=== PATIENT | female | born 1950 | race Caucasian/White ===

== ENCOUNTER 2018-09-01 10:41 | Observation (INO) | payer MEDICARE ==
[2018-09-01 11:19] LABS: ABS Basophils 0.1 10^3/ul (0-0.2); ABS Eosinophils 0 10^3/ul (0-0.6); ABS Lymphocytes 0.8 10^3/ul (1.0-4.8); ABS Monocytes 0.8 10^3/ul (0-0.8); ABS Neutrophils 9.8 10^3/ul (1.5-7.7); ABS Nucleated RBC 0 10^3/ul; Eosinophil % 0.4 % (0-6); Hematocrit 43 % (35-47); Hemoglobin 14.3 g/dl (12.0-16.0); Lymphocyte % 7.1 % (25-47); Mean Corpuscular HGB Conc 34 g/dl (31-36); Mean Corpuscular Hemoglobin 31 pg (27-31); Mean Corpuscular Volume 92 fL (80-97); Mean Platelet Volume 8.4 um3 (7.4-10.4); Nucleated Red Blood Cells % 0.1; Platelet Count 254 10^3/ul (150-450); Red Blood Count 4.66 10^6/ul (4.00-5.40); Red Cell Distribution Width 13 % (10.5-15); White Blood Count 11.5 10^3/ul (3.5-10.8)
--- NOTE | 2018-09-01 11:29 | RAD ---
HISTORY: chest pain COMPARISONS: May 30, 2017 VIEWS: 1: frontal AP view of the chest at 11:15 AM FINDINGS: LINES AND TUBES: None. CARDIOMEDIASTINAL SILHOUETTE: The cardiomediastinal silhouette is normal for portable technique. PLEURA: The costophrenic angles are sharp. No pleural abnormalities are noted. LUNG PARENCHYMA: There is hyperinflation. ABDOMEN: The upper abdomen is clear. There is no subphrenic gas. BONES AND SOFT TISSUES: No bone or soft tissue abnormalities are noted. IMPRESSION: HYPERINFLATION. NO ACTIVE CARDIOPULMONARY DISEASE.
--- NOTE | 2018-09-01 11:50 | ED ---
HPI Chest Pain - HPI Summary HPI Summary: A 68 y/o F presents to ED with c/o intermittent episodes of CP ongoing for months, with the worse episode this AM. The CP is described as crushing and radiates directly to her back and L shoulder blade. Associated sx: SOB, lightheaded, weakness, malaise, VICTORIA, cold hands, mildly blurry vision. Denies v/d , dysuria, melena, pedal edema, rashes. She has had episodes of CP discomfort previously but not as severely as this AM, and it is not usually accompanied by SOB. Pert PMHx: CHF, DM, Uterine CA. Pt has never had a stress test before. She started a new medication recently. She states not going to work for the past few days due to not feeling at baseline. Pt given baby aspirin by EMS. - History of Current Complaint Chief Complaint: EDChestPainROMI Hx Obtained From: Patient, Family/Mill [employer]ender Onset/Duration: Started Hours Ago, Still Present Timing: Constant Initial Severity: Mild Current Severity: Moderate Pain Intensity: 2 Pain Scale Used: 0-10 Numeric Chest Pain Radiates: Yes Chest Pain Radiates To:: Back, Shoulder - L Character: Crushing Aggravating Factor(s): Exertion, Movement Alleviating Factor(s): Rest, EMS Tx Associated Signs and Symptoms: Positive: Shortness of Breath, Lightheadedness, Other: - pos: weakness, malaise, VICTORIA, cold hands. neg: diarrhea, dysuria, melena , pedal edema, rashes.. Negative: Vomiting - Allergy/Home Medications Allergies/Adverse Reactions: Allergies Allergy/AdvReac Type Severity Reaction Status Date / Time No Known Allergies Allergy Verified 12/27/13 14:58 Home Medications: Home Medications Alendronate TAB (NF) [Fosamax TAB (NF)] 70 mg PO DAILY 09/01/18 [History Confirmed 09/01/18] Folic Acid/Multivit-Min/Lutein [Multi-Vitamin Gummies] 1 chw PO DAILY 09/01/18 [ History Confirmed 09/01/18] Ibuprofen TAB* [Motrin TAB* 400 MG] 400 mg PO Q6H PRN 09/01/18 [History Confirmed 09/01/18] Insulin GLARGINE(*) [Lantus(*)] 40 ml SUBCUT DAILY 09/01/18 [History Confirmed 09/01/18] Insulin LISPRO* [HumaLOG*] 0 units SUBCUT AC 09/01/18 [History Confirmed ] Levothyroxine Sodium 88 mcg PO DAILY 09/01/18 [History Confirmed 09/01/18] PMH/Surg Hx/FS Hx/Imm Hx Previously Healthy: No Endocrine/Hematology History: Reports: Hx Diabetes Cardiovascular History: Reports: Hx Congestive Heart Failure, Hx Hypertension Opthamlomology History: Denies: Hx Legally Blind - Cancer History Hx Chemotherapy: No Hx Radiation Therapy: No Infectious Disease History: No Infectious Disease History: Denies: Traveled Outside the [place] in Last 30 Days - Family History Known Family History: Positive: Other - neg: family breast CA - Social History Occupation: Employed Full-time Lives: With Family Alcohol Use: Rare Substance Use Type: Reports: None Review of Systems Positive: Other - pos: malaise Positive: Blurred Vision - mildly Positive: Chest Pain Positive: Shortness Of Breath Positive: Other - neg: melena. Negative: Vomiting, Diarrhea Negative: dysuria, hematuria Positive: Other - pos: cold hands. Negative: Edema Negative: Rash Neurological: Other - pos: lightheadedness Positive: Headache, Weakness Positive: Depressed - mildly All Other Systems Reviewed And Are Negative: No Physical Exam - Summary Physical Exam Summary: Appearance: Alert, conversive, nontoxic appearing Skin: Warm, dry, no mottling, no rashes, no contusions HEENT: EOMI, PERRL, moist mucous membranes Neck: No masses on the neck, supple Respiratory: Clear to auscultation, breath sounds present, no rales, no rhonchi , no wheezes Cardiovascular: RRR, pulses are symmetrical in both lower and upper extremities Abdomen: Soft, non-tender Bowel Sounds: Present Musculoskeletal: No CVA tenderness, no obvious deformity, moving all extremities in a grossly normal manner Neurological: A&Ox3, CN II-XII Intact, moving all extremities symmetrically Psychiatric: Normal affect and mood Triage Information Reviewed: Yes Vital Signs On Initial Exam: Initial Vitals Temp Pulse Resp BP Pulse Ox 98.0 F 84 15 152/69 98 09/01/18 10:44 09/01/18 10:44 09/01/18 10:44 09/01/18 10:44 09/01/18 10:44 Vital Signs Reviewed: Yes Diagnostics - Vital Signs Vital Signs Temp Pulse Resp BP Pulse Ox 09/01/18 10:44 98.0 F 84 15 152/69 98 - Laboratory Lab Results: Lab Results 09/01/18 09/01/18 Range/Units 11:06 11:06 WBC 11.5 H (3.5-10.8) 10^3/ul RBC 4.66 (4.00-5.40) 10^6/ul Hgb 14.3 (12.0-16.0) g/dl Hct 43 (35-47) % MCV 92 (80-97) fL MCH 31 (27-31) pg MCHC 34 (31-36) g/dl RDW 13 (10.5-15) % Plt Count 254 (150-450) 10^3/ul MPV 8.4 (7.4-10.4) um3 Neut % (Auto) 85.4 H (38-83) % Lymph % (Auto) 7.1 L (25-47) % [place] % (Auto) 6.6 (0-7) % Eos % (Auto) 0.4 (0-6) % Baso % (Auto) 0.5 (0-2) % Absolute Neuts (auto) 9.8 H (1.5-7.7) 10^3/ul Absolute Lymphs (auto) 0.8 L (1.0-4.8) 10^3/ul Absolute Monos (auto) 0.8 (0-0.8) 10^3/ul Absolute Eos (auto) 0 (0-0.6) 10^3/ul Absolute Basos (auto) 0.1 (0-0.2) 10^3/ul Absolute Nucleated RBC 0 10^3/ul Nucleated RBC % 0.1 D-Dimer, Quantitative < 200 (Less Than 230) ng/mL Result Diagrams: 09/01/18 11:06 09/01/18 11:06 Lab Statement: Any lab studies that have been ordered have been reviewed, and results considered in the medical decision making process. - Radiology CXR Xray Interpretation: Positive (See Comments) - IMPRESSION: HYPERINFLATION. NO ACTIVE CARDIOPULMONARY DISEASE. ED provider has reviewed this report. Radiology Interpretation Completed By: Radiologist - EKG 1044 Cardiac Rate: NL - 82 bpm EKG Rhythm: Sinus Rhythm EKG Interpretation: nml axis, nml ST wave Chest Pain Course/Dx - Course Course Of Treatment: Pt is a 68 y/o F presenting with intermittent episodes of CP ongoing for months, with the worse episode this AM. The CP is described as crushing and radiates directly to her back and L shoulder blade. Associated sx: SOB, lightheaded, weakness, malaise, VICTORIA, cold hands, mildly blurry vision. Pt denies ever having a stress test. Physical exam is unremarkable. EKG is NSR. - Diagnoses Provider Diagnoses: Chest pain - Provider Notifications Discussed Care Of Patient With: Jen Morgan - hospitalist Time Discussed With Above Provider: 12:23 Instructed by Provider To: Admit As Inpatient Discharge - Sign-Out/Discharge Documenting (check all that apply): Patient Departure - ADMIT - Discharge Plan Condition: Stable Disposition: ADMITTED TO [facility] - Billing Disposition and Condition Condition: STABLE Disposition: Admitted to [facility] - Attestation Statements Document Initiated by Scribe: Yes Documenting Scribe: Dagoberto Shafer Provider For Whom Scribe is Documenting (Include Credential): Dr. Lala Clarke MD Scribe Attestation: Dagoberto Parnell scribed for Dr. Lala Clarke MD on 09/01/18 at 1948. Scribe Documentation Reviewed: Yes Provider Attestation: The documentation as recorded by the Dagoberto sanchez accurately reflects the service I personally performed and the decisions made by me, Dr. Lala Clarke MD
[2018-09-01 11:57] LABS: EGFR Non-African American 64.6 (>60)
[2018-09-01] MEDS ORDERED: Nitroglycerin 2% OINT* 1 GM PAK TOPICAL ONE (12:13)
[2018-09-01] MEDS ORDERED: Morphine INJ* 4 MG/ML 1 ML SYRINGE (NEW SYRINGE VERSION) IV PRN (13:13)
[2018-09-01] MEDS ORDERED: Al Hydrox/Mg Hydrox/Simet LIQ* 30 ML UDC PO PRN (13:13)
[2018-09-01] MEDS ORDERED: oxyCODONE/Acetamin 5/325 MG* TAB PO PRN (13:13)
[2018-09-01] MEDS ORDERED: Ondansetron INJ* 2 MG/ML VIAL IV PRN (13:13)
[2018-09-01] MEDS ORDERED: Albuterol 2.5 MG/3 ML NEB.SOL* (0.083%) INH PRN (13:13)
[2018-09-01] MEDS ORDERED: Nitroglycerin TAB 0.4 MG* 0.4 MG TAB SL ONE (13:16)
[2018-09-01] MEDS ORDERED: Dextrose 50% Syringe 50 ML* 25 GM/50 ML SYRINGE IV PUSH PRN (13:20)
--- NOTE | 2018-09-01 16:44 | HP ---
AMENDED REPORT NOW INCLUDES COSIGNER DESIGNATION CC: Dr. Olea from [facility]* ADMISSION HISTORY AND PHYSICAL: DATE OF ADMISSION: 09/01/18 PATIENT OF ADMITTING HOSPITALIST: Jen Morgan DO* (DICTATED BY AILEEN DOHERTY) PRIMARY CARE PROVIDER: Dr. Olea from [facility]. ATTENDING HOSPITALIST WHILE PATIENT HERE: Dr. Morgan. CHIEF COMPLAINT: Chest pain. HISTORY OF PRESENT ILLNESS: Mrs. Raygoza is a 68-year-old female with past medical history significant for uterine cancer for which she had a total hysterectomy with salpingo-oophorectomy followed by radiation as well as history of Graves' disease, status post total thyroidectomy, and type 1 diabetes mellitus, who presented to the emergency room today with complaints of intermittent chest pain for the past few months. The patient described her pain as being crushing, usually located under her sternum, occasionally radiates to her left arm and left scapula, sometimes happened with exertion and sometimes happened at rest as well. She experienced another episode of similar chest pain this morning associated with shortness of breath; however, she denies any diaphoresis, dizziness, nausea, vomiting, or any other associated symptoms. She has never had any history of coronary artery disease or heart attacks in the past. She tells me that her mother's side in the family has significant history of heart attack as well. She was evaluated in the emergency room and had laboratory workup that revealed normal troponin as well as TSH of 1.01. Her EKG showed sinus rhythm with no ST changes but given her age, history of cancer as well as history of borderline hyperlipidemia which she was just diagnosed with 2 weeks ago, we were asked to admit the patient for further evaluation and to rule out acute coronary syndrome. PAST MEDICAL HISTORY: As mentioned above, significant for: 1. Type 1 insulin-dependent diabetes mellitus. 2. History of Graves' disease. 3. History of uterine cancer. 4. Osteopenia. PAST SURGICAL HISTORY: Significant for: 1. Thyroidectomy. 2. Laparoscopic-assisted hysterectomy and salpingo-oophorectomy. HOME MEDICATIONS: Her medications at home include: 1. Fosamax 70 mg p.o. q. weekly. 2. Folic acid with multivitamin 1 tablet chewable once daily. 3. Motrin 400 mg p.o. q.6 hours as needed for pain or fever. 4. Insulin Lantus 40 units subcu q.a.m. 5. Insulin lispro Humalog per sliding scale 3 times daily. 6. Levothyroxine 88 mcg p.o. daily. ALLERGIES: She has no known drug allergies. FAMILY HISTORY: Significant for coronary artery disease in her maternal side. SOCIAL HISTORY: The patient is and her Emanuel is her healthcare proxy carrier. She is a nonsmoker, who rarely drinks alcohol. She is retired and she lives at home with her and she wishes to be a full code. REVIEW OF SYSTEMS: See HPI, otherwise 12-point review of systems were examined and they were essentially negative. PHYSICAL EXAMINATION GENERAL: She is a pleasant, healthy-appearing middle-aged female in no acute distress or discomfort at the time of admission. VITALS: Reveal temperature of 98.0, heart rate of 78, blood pressure 137/67, respirations of 16 with O2 sat of 97% on room air. HEENT: Head is normocephalic and atraumatic. Sclerae are anicteric. PERRLA. EOMs intact. Oropharynx is pink and moist. NECK: Supple. Trachea midline. No cervical adenopathy. There is a scar from prior thyroidectomy noted and well-healed. LUNGS: Clear to auscultation bilaterally. HEART: Regular rate and rhythm. Normal S1 and S2 without rubs, murmurs, or gallops. BACK: With normal curvature. No CVA tenderness. BREASTS: Exam deferred at this time. ABDOMEN: Soft, nontender, and nondistended. There is no hernias, masses, or hepatosplenomegaly. Bowel sounds were normoactive in all quadrants. EXTREMITIES: Without cyanosis, clubbing, or edema. RECTAL: Exam deferred at this time. NEUROLOGIC: She is awake, alert, and oriented x3. Tongue is midline, handgrip is equal bilaterally, and sensation is intact throughout. LABORATORY WORKUP: CBC with a white count of 11,500, hemoglobin of 13.3, hematocrit of 33, and platelets of 254,000. Her coags with D-dimer less than 200. Chemistry panel with sodium of 136, potassium 3.6, chloride 102, CO2 of 20 , BUN of 22, creatinine of 0.87. Her glucose is 341, magnesium 1.8. Troponin 0. LFTs within normal limits. BNP 44 and TSH of 1.01. ACCESSORY DIAGNOSTIC DATA: Chest x-ray with no acute cardiopulmonary issues and EKG revealed sinus rhythm with no ST changes. IMPRESSION: A 68-year-old female with past medical history significant for uterine cancer, Graves' disease, and type 1 diabetes mellitus as well as osteopenia, who presented to the emergency room with intermittent chest discomfort for a few months, seemed to be worse this morning, happened at rest, and associated with shortness of breath, who was found to have negative troponin and normal EKG; however, she carries multiple risk factors for coronary artery disease and will be admitted under hospitalist services for observation overnight to rule out acute coronary syndrome. ASSESSMENT AND PLAN: 1. Chest pain. The patient will be admitted to the telemetry unit for observation. I will trend her troponin, repeat EKG in the morning as well as echocardiogram. Her tells me that she was evaluated at [facility] and has prior history of congestive heart failure; however, I do not see any echocardiogram evidence in her past records. We will also provide morphine and nitroglycerin as needed for her chest pain. She is clinically stable and currently chest pain-free upon admission. She tells me that she had a lipid panel checked by her primary care 2 weeks ago and she noted that she had elevated HDL only. She is currently on not any statin or any other high lipid medication. 2. Type 1 diabetes mellitus. I will continue her Lantus coverage as well as Humalog per sliding scale. 3. History of Graves' disease, status post thyroidectomy. I will continue her levothyroxine dose of 88 mcg since her TSH is within normal limits. 4. History of osteopenia. The patient takes weekly Fosamax as prescribed. 5. DVT prophylaxis. She is a high risk given her history of cancer and I will cover her with heparin subcutaneous. 6. Code status. She wishes to be a full code. 7. Disposition. Admit to telemetry unit, rule out acute coronary syndrome with trending troponin, repeat EKG and stress test in the morning. TIME SPENT: Approximately 60 minutes were spent admitting this patient, for which greater than 50% of that time on taking history and performing physical exam. I went on and discussed the case with my attending, who agreed to plan of care and will follow her up accordingly. AILEEN DOHERTY [id number]/[facility] #: [id number] TINY
[2018-09-01] MEDS: Heparin VIAL(*) 5000 UNITS/ML VIAL (FIVE THOUSAND) SUBCUT SCH ×2 (16:55→21:29)
[2018-09-01] MEDS: Insulin LISPRO* 1 UNITS UNIT SUBCUT SCH ×2 (17:05→21:29)
[2018-09-01] MEDS: Acetaminophen TAB* 325 MG PO PRN (17:06)
[2018-09-02] MEDS: Heparin VIAL(*) 5000 UNITS/ML VIAL (FIVE THOUSAND) SUBCUT SCH ×2 (06:12→14:24)
[2018-09-02] MEDS: Levothyroxine TAB* 88 MCG TAB PO SCH ×2 (06:28→11:32)
[2018-09-02 07:02] LABS: ABS Basophils 0.1 10^3/ul (0-0.2); ABS Eosinophils 0.3 10^3/ul (0-0.6); ABS Lymphocytes 1.3 10^3/ul (1.0-4.8); ABS Monocytes 0.4 10^3/ul (0-0.8); ABS Neutrophils 3.3 10^3/ul (1.5-7.7); ABS Nucleated RBC 0 10^3/ul; Eosinophil % 4.7 % (0-6); Hematocrit 43 % (35-47); Hemoglobin 14.8 g/dl (12.0-16.0); Lymphocyte % 24.4 % (25-47); Mean Corpuscular HGB Conc 35 g/dl (31-36); Mean Corpuscular Hemoglobin 32 pg (27-31); Mean Corpuscular Volume 91 fL (80-97); Mean Platelet Volume 8.4 um3 (7.4-10.4); Nucleated Red Blood Cells % 0; Platelet Count 245 10^3/ul (150-450); Red Blood Count 4.68 10^6/ul (4.00-5.40); Red Cell Distribution Width 13 % (10.5-15); White Blood Count 5.4 10^3/ul (3.5-10.8)
[2018-09-02 07:19] LABS: EGFR Non-African American 88.8 (>60)
[2018-09-02] MEDS ORDERED: Potassium Chlor TAB* 20 MEQ TAB.ER PO ONE (07:21)
[2018-09-02] MEDS ORDERED: Insulin GLARGINE(*) 1 UNITS UNIT SUBCUT SCH (09:00)
[2018-09-02] MEDS: Insulin LISPRO* 1 UNITS UNIT SUBCUT SCH ×3 (10:02→17:07)
[2018-09-02] MEDS: Acetaminophen TAB* 325 MG PO PRN (11:20)
--- NOTE | 2018-09-02 11:48 | RAD ---
Edited for charges. INDICATION: Chest pain. COMPARISON: There are no relevant prior studies available for comparison. Technique: A single day myocardial perfusion stress study was performed. Initially the resting study was performed. The patient was given an intravenous injection of 10.7 mCi of technetium 99m tetrofosmin and and the heart was imaged in multiple projections. The patient returned later in the day and under the direction of Dr. Bill, the patient was given intervenous injection of Lexiscan. Subsequently the patient was given intravenous injection of 25.6 mCi of technetium 99m tetrofosmin and the heart was imaged in multiple projections. Images were reconstructed in the axial, sagittal and coronal planes and in a 3- D format. FINDINGS: There appears be slight hypokinesis in the septum. The left ventricular ejection fraction is within normal limits and calculated to be 68%. No focal myocardial perfusion defects are seen. IMPRESSION: NO EVIDENCE FOR INFARCT OR ISCHEMIA. ASSESSMENT: Low risk. Based on imaging criteria from ACC/AHA 2002 Guideline Update for the Management of Patients With Chronic Stable Angina Table 23. Noninvasive Risk Stratification. MTDD
--- NOTE | 2018-09-02 13:21 | PN ---
Subjective Date of Service: 09/02/18 Interval History: Pt resting comfortably. Denies chest pain or chest pressure. Denies shortness of breath, diaphoresis, dizziness, N/V/D, abdominal pain, numbness or tingling. Objective Active Medications: Acetaminophen (Tylenol Tab*) 650 mg PO Q4H PRN PRN Reason: FEVER/PAIN Last Admin: 09/02/18 11:20 Dose: 650 mg Al Hydrox/Mg Hydrox/Simethicone (Maalox Plus*) 30 ml PO Q6H PRN PRN Reason: INDIGESTION Albuterol (Ventolin 2.5 Mg/3 Ml Neb.Mariaa*) 2.5 mg INH RT.Y2EP-SHOXJ AWAKE PRN PRN Reason: sob/wheezing Dextrose (D50w Syringe 50 Ml*) 12.5 gm IV PUSH .FOR FS < 60 - SS PRN PRN Reason: FS < 60 Heparin Sodium (Porcine) (Heparin Vial(*)) 5,000 units SUBCUT Q8HR [facility] Last Admin: 09/02/18 06:12 Dose: 5,000 units Insulin Glargine (Lantus(*)) 40 units SUBCUT Q24H [facility] Last Admin: 09/02/18 11:21 Dose: 40 units Insulin Human Lispro (Humalog*) 0 units SUBCUT [facility]; Protocol Last Admin: 09/02/18 10:02 Dose: Not Given Levothyroxine Sodium (Synthroid Tab*) 88 mcg PO DAILY@0600 [facility] Last Admin: 09/02/18 11:32 Dose: 88 mcg Morphine Sulfate (Morphine Inj (Syringe)*) 2 mg IV Q4H PRN PRN Reason: PAIN Ondansetron HCl (Zofran Inj*) 4 mg IV Q4H PRN PRN Reason: NAUSEA/VOMITING Oxycodone/Acetaminophen (Percocet 5/325 Tab*) 1 tab PO Q4H PRN PRN Reason: Pain Last Admin: 09/01/18 19:56 Dose: 1 tab Vital Signs - 8 hr 09/02/18 09/02/18 07:39 11:10 Temperature 97.6 F 97.7 F Pulse Rate 69 70 Respiratory 16 20 Rate Blood Pressure 122/55 141/53 (mmHg) O2 Sat by Pulse 97 98 Oximetry Oxygen Devices in Use Now: None Eyes: No Scleral Icterus, PERRLA Ears/Nose/Mouth/Throat: NL Teeth, Lips, Gums, Clear Oropharnyx, Mucous Membranes Moist Neck: NL Appearance and Movements; NL JVP Respiratory: Symmetrical Chest Expansion and Respiratory Effort, Clear to Auscultation Cardiovascular: NL Sounds; No Murmurs; No JVD, RRR, No Edema Abdominal: NL Sounds; No Tenderness; No Distention Extremities: No Edema, No Clubbing, Cyanosis Skin: No Rash or Ulcers Neurological: Alert and Oriented x 3, NL Muscle Strength and Tone Lines/Tubes/Other Access: Clean, Dry and Intact Peripheral IV Nutrition: Taking PO's Result Diagrams: 09/02/18 06:49 09/02/18 06:50 Additional Lab and Data: Lab Results 09/01/18 09/01/18 Range/Units 11:06 11:06 WBC 11.5 H (3.5-10.8) 10^3/ul RBC 4.66 (4.00-5.40) 10^6/ul Hgb 14.3 (12.0-16.0) g/dl Hct 43 (35-47) % MCV 92 (80-97) fL MCH 31 (27-31) pg MCHC 34 (31-36) g/dl RDW 13 (10.5-15) % Plt Count 254 (150-450) 10^3/ul MPV 8.4 (7.4-10.4) um3 Neut % (Auto) 85.4 H (38-83) % Lymph % (Auto) 7.1 L (25-47) % [place] % (Auto) 6.6 (0-7) % Eos % (Auto) 0.4 (0-6) % Baso % (Auto) 0.5 (0-2) % Absolute Neuts (auto) 9.8 H (1.5-7.7) 10^3/ul Absolute Lymphs (auto) 0.8 L (1.0-4.8) 10^3/ul Absolute Monos (auto) 0.8 (0-0.8) 10^3/ul Absolute Eos (auto) 0 (0-0.6) 10^3/ul Absolute Basos (auto) 0.1 (0-0.2) 10^3/ul Absolute Nucleated RBC 0 10^3/ul Nucleated RBC % 0.1 D-Dimer, Quantitative < 200 (Less Than 230) ng/mL Assess/Plan/Problems-Billing Assessment: 68 year old female with PMH uterine cancer (s/p total hysterectomy and radiation ), Hx graves disease (s/p thyroidectomy), DM who presented to the ED with crushing substernal chest pain radiating to her left arm and associated with SOB , lightheadedness and weakness. Admitted to hospitalist team for further crdiac workup. EKG without signs of ischemia x2. Trop negative x3. Stress test today without evidence of infarct or ischemia. - Patient Problems (1) Chest pain Current Visit: Yes Status: Acute Code(s): R07.9 - CHEST PAIN, UNSPECIFIED SNOMED Code(s): 84242649 Comment: - Resolved. No chest pain today. Pt also denies SOB. - EKG x2 without signs of ischemia. Deemed to be at low risk for cardiac event. Trop neg x3. CXR without evidence of cardiopulm disease - Nuclear stress test today without evidence of infarct or ischemia. - Echo pending (2) Diabetes Current Visit: Yes Status: Acute Code(s): E11.9 - TYPE 2 DIABETES MELLITUS WITHOUT COMPLICATIONS SNOMED Code(s): 32525077 Comment: - Continue home glargine + lispro sliding scale AC HS (3) History of Graves' disease Current Visit: Yes Status: Acute Code(s): Z86.39 - PERSONAL HISTORY OF ENDO , NUTRITIONAL AND METABOLIC DISEASE SNOMED Code(s): 496365859056432 Comment: - s/p thyroidectomy. TSH 1.01. Continue synthroid 88 mcg daily (4) DVT prophylaxis Current Visit: Yes Status: Acute Code(s): MYN2631 - SNOMED Code(s): 662581911 Comment: - SQ heparin (5) Full code status Current Visit: Yes Status: Acute Code(s): Z78.9 - OTHER SPECIFIED HEALTH STATUS SNOMED Code(s): 917689376 Status and Disposition: Likely discharge to home pending echo results Attending: Jen Morgan
[2018-09-02] MEDS ORDERED: Regadenoson* 0.4 MG/5 ML SYRINGE ONE (14:46)
[2018-09-02 15:22] VITALS: BP 116/50
--- NOTE | 2018-09-03 11:58 | DS ---
AMENDED REPORT NOW INCLUDES COSIGNER DESIGNATION Cc: Dr. Yessi Olea.* DISCHARGE SUMMARY: DATE OF ADMISSION: 09/02/18 DATE OF DISCHARGE: 09/03/18 PROVIDER: Selma Welch NP ATTENDING PHYSICIAN: Dr. Jen Morgan * (dictated by Selma Welch). PRIMARY CARE PROVIDER: Dr. Yessi Olea. PRIMARY DIAGNOSIS: Chest pain. SECONDARY DIAGNOSES: Diabetes, history of Graves' disease. DISCHARGE MEDICATIONS: 1. Lantus 40 units subcu daily. 2. Insulin lispro subcu a.c. 3. Fosamax 70 mg p.o. weekly. 4. Multivitamin gummies 1 to 2 p.o. daily. 5. Motrin 400 mg p.o. q.6 h. p.r.n. 6. Synthroid 88 mcg p.o. daily. HOSPITAL COURSE: The patient is a 68-year-old female with a past medical history of uterine cancer, status post total hysterectomy and radiation; history of Graves' disease, status post thyroidectomy; osteopenia; diabetes, on home insulin (Hg A1c 10), who presented to the ED with crushing substernal chest pain radiating to her left arm and associated with shortness of breath with exertion and at rest, lightheadedness, and weakness. She reported she'd had intermittent chest pain for months, but never this severe and not associated with any other symptoms. Her vital signs were stable. Initial EKG did not show signs of ischemia. Initial troponin was negative. Chest x-ray was without signs of cardiopulmonary disease. She was given nitro which relieved her chest pain. She was admitted to the hospitalist service for further cardiac workup and to rule out acute coronary syndrome. Troponins were negative x3. Repeat EKG in the morning also did not show sign of ischemia. She underwent a nuclear stress test today that showed no evidence of infarct or ischemia and was deemed low risk for a cardiac event. She also underwent an echo, which showed normal LV systolic function (EF 55-60%), and E to A reversal in the mitral valve flow pattern suggestive of diastolic dysfunction, which was similar to what was reported by the patient on admission. On exam on the day of discharge, she was chest pain free and denies shortness of breath or lightheadedness. No evidence of acute HFpEF exacerbation on exam. The rest of her review of systems was negative. DISPOSITION: Discharge to home. DIET: Carb-controlled diet. ACTIVITY: As tolerated. FOLLOWUP: The patient was instructed to follow up with her primary care provider in 4 to 7 days. TIME SPENT: Time spent for this discharge was 30 minutes. SELMA WELCH NP [id number]/[facility] #: [id number] TINY
== END 2018-09-02 18:10 | disposition home or self-care (01) ==
LOC: ED 10:41 → MEDTELE 13:13 → MED 14:48 → UNDOADMOB 14:48 → MEDTELE 14:49 → MED 14:49
PROVIDERS: ADMIT Hospitalist; ATTEND Hospitalist
DX: R07.9 Chest pain, unspecified (principal); E11.9 Type 2 diabetes mellitus without complications; Z86.39 Personal history of other endocrine, nutritional and metabolic disease; Z85.42 Personal history of malignant neoplasm of other parts of uterus
CPT/HCPCS: 36415; 71045; 78452; 80048; 80053; 83036; 83735; 83880; 84443; 84484; 85025; 85379; 93005; 93017; 93306; 96374; 96375; 96376; 99285; A9270-GY; A9502; G0378; J1644; J2785

== ENCOUNTER 2019-01-05 09:32 | Emergency (ER) | payer MEDICARE ==
[2019-01-05 09:56] VITALS: BP 116/64
--- NOTE | 2019-01-05 10:34 | UC ---
Throat Pain/Nasal Marino HPI - HPI Summary HPI Summary: 68-year-old female presents with onset of general malaise, fatigue, body aches, nasal congestion, sinus pressure, mild sore throat, nausea, and a nonproductive cough 2 days ago. Unsure of fever. Denies ear pain, dysphagia, chest pain, shortness of breath, wheezing, abdominal pain, vomiting, or diarrhea. - History of Current Complaint Chief Complaint: UCGeneralIllness Stated Complaint: COUGH,CONGESTION,SINUSES Time Seen by Provider: 01/05/19 10:16 Hx Obtained From: Patient Pain Intensity: 6 - Allergies/Home Medications Allergies/Adverse Reactions: Allergies Allergy/AdvReac Type Severity Reaction Status Date / Time No Known Allergies Allergy Verified 01/05/19 09:47 Home Medications: Home Medications D-Methorphan/PE/Acetaminophen [Cold Relief/Non-Drowsy/Da 10-5-325 mg] 2 tab PO DAILY PRN 01/05/19 [History Confirmed 01/05/19] PMH/Surg Hx/FS Hx/Imm Hx Endocrine History: Diabetes, Hypothyroidism - Surgical History Surgical History: Yes Surgery Procedure, Year, and Place: Thyroidectomy. Hysterectomy - Family History Known Family History: Positive: Non-Contributory - Social History Occupation: Retired Lives: With Family Alcohol Use: None Substance Use Type: None Smoking Status (MU): Former Smoker Have You Smoked in the Last Year: No When Did the Patient Quit Smoking/Using Tobacco: 40-50 yrs ago Review of Systems All Other Systems Reviewed And Are Negative: Yes Constitutional: Positive: Chills, Fatigue Skin: Negative: Rash Eyes: Negative: Drainage, Eye Redness ENT: Positive: Sore Throat, Nasal Discharge. Negative: Ear Ache, Sinus Congestion, Sinus Pain/Tenderness Respiratory: Positive: Cough. Negative: Shortness Of Breath Cardiovascular: Negative: Palpitations, Chest Pain Gastrointestinal: Positive: Nausea. Negative: Abdominal Pain, Vomiting, Diarrhea Genitourinary: Positive: Negative Musculoskeletal: Positive: Myalgia Neurological: Positive: Headache Is Patient Immunocompromised?: No Physical Exam - Summary Physical Exam Summary: GENERAL APPEARANCE: Well developed, well nourished, alert and cooperative, and appears to be in no acute distress. EYES: Conjunctiva clear. No discharge. Vision is grossly intact. EARS: External auditory canals and tympanic membranes clear, hearing grossly intact. NOSE: Mild nasal congestion with clear nasal discharge. THROAT: Mild pharyngeal erythema. No tonsilar inflammation, swelling, exudate, or lesions. NECK: Neck supple, non-tender without lymphadenopathy. CARDIAC: Normal S1 and S2. No S3, S4 or murmurs. Rhythm is regular. There is no peripheral edema, cyanosis or pallor. Extremities are warm and well perfused. Capillary refill is less than 2 seconds. LUNGS: Clear to auscultation without rales, rhonchi, wheezing or diminished breath sounds. ABDOMEN: Positive bowel sounds. Soft, nondistended, nontender. No guarding or rebound. No masses or hepatosplenomegally. MUSKULOSKELETAL: ROM intact to all extremities. No joint erythema or tenderness. Normal muscular development. Normal gait. SKIN: Skin normal color, texture and turgor with no lesions or eruptions. Triage Information Reviewed: Yes Vital Signs: Initial Vital Signs Temp 99.1 F 01/05/19 09:52 Pulse 98 01/05/19 09:52 Resp 20 01/05/19 09:52 BP 116/64 01/05/19 09:52 Pulse Ox 97 01/05/19 09:52 Vital Signs Reviewed: Yes Diagnostics - Laboratory Diagnostic Studies Completed/Ordered: Rapid flu positive influenza A. Throat Pain/Nasal Course/Dx - Course Course Of Treatment: 68-year-old female presents with onset of general malaise, fatigue, body aches, nasal congestion, sinus pressure, mild sore throat, nausea , and a nonproductive cough 2 days ago. Unsure of fever. Denies ear pain, dysphagia, chest pain, shortness of breath, wheezing, abdominal pain, vomiting, or diarrhea. Afebrile. Vital signs stable. Exam reveals an older adult female in no acute distress with mild to moderate nasal congestion, clear nasal discharge, mild pharyngeal erythema without tonsillar swelling or exudate, clear bilateral breath sounds, and occasional nonproductive cough. Rapid flu was positive for influenza A. Discussed risks and benefits of starting Tamiflu with the patient and she is electing to start the Tamiflu at this time. Additionally recommending symptomatic treatment. She is to follow-up with her primary care provider in 7 days if symptoms do not improve. Anticipatory guidance and warning symptoms reviewed with the patient. Verbalizes understanding and agrees with plan of care. - Differential Dx/Diagnosis Differential Diagnosis/HQI/PQRI: Influenza, Otitis Media, Pharyngitis, Sinusitis , Tonsillitis, URI Provider Diagnosis: Influenza A Discharge - Sign-Out/Discharge Documenting (check all that apply): Patient Departure All imaging exams completed and their final reports reviewed: No Studies - Discharge Plan Condition: Stable Disposition: HOME Prescriptions: Oseltamivir CAP* [Tamiflu CAP*] 75 mg PO BID #10 cap Patient Education Materials: Influenza (ED) Referrals: Yessi Olea MD [Primary Care Provider] - 7 Days (If no improvement.) Additional Instructions: Your rapid flu test today was positive of influenza A. I have sent a prescription for Tamiflu to the pharmacy. This needs to be started within 48 hours from onset of symptoms for there to be any benefit from the medication. It is not a cure for the flu but helps reduce severity of symptoms and decreases the duration of symptoms by about 1 day. Plenty of rest. Drink plenty of fluids to avoid dehydration especially if you are running any fever. Take over the counter acetaminophen (Tylenol) according to directions as needed for pain or fever. Use salt water gargles several times a day if you have a sore throat. You may also use Chloraseptic spray or Cepacol lonzenges according to directions which contain a numbing medication and can provide some temporary relief from your sore throat. Follow up with your primary care provider in 7 days if symptoms persist. Seek immediate medical attention in the emergency room if you have fever greater than 100.5 F despite taking acetaminophen or ibuprofen, have chest pain , difficulty breathing, are unable to swallow, or have any worsening of symptoms. - Billing Disposition and Condition Condition: STABLE Disposition: Home
[2019-01-05 10:45] LABS: Influenza A Molecular POSITIVE (Negative)
== END 2019-01-05 11:10 | disposition home or self-care (01) ==
LOC: UCCORT 09:32
DX: J10.1 Influenza due to other identified influenza virus with other respiratory manifestations (principal); E11.9 Type 2 diabetes mellitus without complications; Z87.891 Personal history of nicotine dependence
CPT/HCPCS: 99212; G0463

== ENCOUNTER 2021-07-06 07:16 | Inpatient (IN) ==
[2021-07-06] MEDS ORDERED: Lactated Ringers 1000 ml BAG 1,000 ML IV ONE ×2 (07:48)
[2021-07-06] MEDS ORDERED: Ondansetron 4 mg VIAL 2 MG/ML 2 ml VIAL IV ONE (07:58)
[2021-07-06 08:06] LABS: ABS Basophils 0.1 10^3/ul (0-0.2); ABS Lymphocytes 1.2 10^3/ul (1.0-4.8); ABS Monocytes 0.5 10^3/ul (0-0.8); ABS Neutrophils 16.1 10^3/ul (1.5-7.7); Eosinophil % 0.1 %; Hematocrit 45 % (35-47); Hemoglobin 14.9 g/dL (12.0-16.0); Lymphocyte % 6.6 %; Mean Corpuscular HGB Conc 33 g/dL (31-36); Mean Corpuscular Hemoglobin 32 pg (27-31); Mean Corpuscular Volume 97 fL (80-97); Platelet Count 335 10^3/uL (150-450); Red Cell Distribution Width 14 % (10-15); White Blood Count 17.9 10^3/uL (3.5-10.8)
[2021-07-06 08:18] LABS: ALT 17 U/L (7-52); Albumin 4.8 g/dL (3.2-5.2); Albumin/Globulin Ratio 1.2 (1-3); Alkaline Phosphatase 109 U/L (35-149); Blood Urea Nitrogen 27 mg/dL (6-24); C Reactive Protein 25.86 mg/L (<8.01); Chloride 95 mmol/L (101-111); EGFR African American 65.4 (>60); Lipase < 10 U/L (11.0-82.0); Sodium 129 mmol/L (135-145); Total Protein 8.8 g/dL (6.4-8.9)
[2021-07-06 08:23] LABS: Venous Bicarbonate HCO3 10.9 mmol/L (24-28)
[2021-07-06 08:37] LABS: CO2 Carbon Dioxide 9 mmol/L (22-32); Glucose 504 mg/dL (70-100)
[2021-07-06 08:38] LABS: Anion Gap 25 mmol/L (2-11)
[2021-07-06] MEDS ORDERED: Iodixanol (CONTRAST) 320 MG/ML 100 ML SDV IV ONE (08:47)
[2021-07-06 09:26] LABS: Urine Appearance Clear; Urine Bilirubin Negative (Negative); Urine Blood 1+ (Negative); Urine Color Straw; Urine Glucose 3+(>=500 mg/dL) (Negative); Urine Ketones 2+ (Negative); Urine Nitrite Negative (Negative); Urine Protein Negative (Negative); Urine Specific Gravity 1.018 (1.002-1.030); Urine Urobilinogen Negative (Negative)
[2021-07-06 09:29] LABS: Urine Bacteria Absent (Absent); Urine Red Blood Cell Trace(0-2/hpf) (Absent); Urine Squamous Epithelial Cell Present (Absent); Urine White Blood Cell Trace(0-5/hpf) (Absent)
[2021-07-06] MEDS ORDERED: Potassium Chloride IV 20 MEQ in Lactated Ringers 1000 ml BAG 1,000 ML IVPB SCH (11:00)
[2021-07-06] MEDS ORDERED: Insulin Infusion 100unit/100mL 100 UNIT/100 ML BAG IV SCH ×2 (11:00→15:00)
[2021-07-06] MEDS: Potassium Chloride IV 20 MEQ in Lactated Ringers 1000 ml BAG 1,000 ML IVPB SCH ×2 (11:40→18:03)
[2021-07-06 11:42] LABS: Creatine Kinase 149 U/L (10-223)
[2021-07-06 12:14] LABS: TSH Ultra Thyroid Stim Horm 0.37 mcIU/mL (0.34-5.60)
[2021-07-06] MEDS ORDERED: Buffered Lidocaine 1% SYRIN 1 ml INTRADERM ONE (12:31)
[2021-07-06 13:17] LABS: Glucose Confirmatory 471 mg/dL (70-100)
[2021-07-06 13:58] LABS: Calcium 9.4 mg/dL (8.6-10.3); Chloride 104 mmol/L (101-111); Sodium 134 mmol/L (135-145)
[2021-07-06 14:04] LABS: AST Redraw 16 U/L (13-39); Blood Urea Nitrogen 24 mg/dL (6-24); EGFR African American 72.8 (>60); EGFR Non-African American 60.2 (>60)
[2021-07-06 14:10] LABS: Potassium 5.2 mmol/L (3.5-5.0)
[2021-07-06 14:17] LABS: CO2 Carbon Dioxide < 7 mmol/L (22-32)
[2021-07-06] MEDS: Enoxaparin 30 MG/0.3 ML SYR SUBCUT SCH (14:24)
[2021-07-06] MEDS: Acetaminophen IV 1 GM/100ML 100 ML IV PRN (14:26)
[2021-07-06 16:15] LABS: Potassium, Whole Blood 5.2 mmol/L (3.4-4.5)
[2021-07-06 16:16] LABS: Glucose Confirmatory 487 mg/dL (70-100)
[2021-07-06 16:29] LABS: Phosphorus 4.7 mg/dL (2.5-5.0)
[2021-07-06 16:34] LABS: Glucose 535 mg/dL (70-100)
[2021-07-06 16:35] LABS: Troponin I 0.03 ng/mL (<0.03)
[2021-07-06 17:12] LABS: Venous Bicarbonate HCO3 7.4 mmol/L (24-28)
[2021-07-06] MEDS ORDERED: Ondansetron 4 mg VIAL 2 MG/ML 2 ml VIAL IV PRN (18:11)
[2021-07-06] MEDS ORDERED: D5W NS 0.9% 20Meq KCL 1000 ml 1,000 ML IV SCH (20:00)
[2021-07-06 20:01] LABS: Blood Urea Nitrogen 21 mg/dL (6-24); Calcium 9.5 mg/dL (8.6-10.3); EGFR African American 66.9 (>60); EGFR Non-African American 55.3 (>60); Glucose 220 mg/dL (70-100); Potassium 3.9 mmol/L (3.5-5.0); Sodium 139 mmol/L (135-145)
[2021-07-06 20:02] LABS: Troponin I 0.03 ng/mL (<0.03)
[2021-07-06 20:03] LABS: Anion Gap 16 mmol/L (2-11); CO2 Carbon Dioxide 10 mmol/L (22-32); Chloride 113 mmol/L (101-111)
[2021-07-06 23:39] LABS: Calcium 9.1 mg/dL (8.6-10.3); EGFR African American 77.7 (>60); EGFR Non-African American 64.2 (>60); Potassium 3.8 mmol/L (3.5-5.0)
[2021-07-06 23:41] LABS: Troponin I 0.02 ng/mL (<0.03)
[2021-07-06] MEDS ORDERED: Insulin GLARGINE 100 un/ml 10 ml VIAL SUBCUT ONE (23:51)
[2021-07-07] MEDS ORDERED: Insulin GLARGINE 100 un/ml 10 ml VIAL ONE (00:01)
[2021-07-07] MEDS: Acetaminophen IV 1 GM/100ML 100 ML IV PRN ×2 (01:47→13:22)
[2021-07-07] MEDS ORDERED: Dextrose 50% Syringe 50 ml 25 GM/50 ML SYRINGE IV PUSH PRN (02:12)
[2021-07-07 04:29] LABS: ABS Lymphocytes 0.6 10^3/ul (1.0-4.8); ABS Monocytes 1.1 10^3/ul (0-0.8); ABS Neutrophils 15.1 10^3/ul (1.5-7.7); Hematocrit 36 % (35-47); Hemoglobin 11.8 g/dL (12.0-16.0); Lymphocyte % 3.6 %; Mean Corpuscular HGB Conc 33 g/dL (31-36); Mean Corpuscular Hemoglobin 31 pg (27-31); Mean Corpuscular Volume 95 fL (80-97); Mean Platelet Volume 8.3 fL (7.4-10.4); Platelet Count 261 10^3/uL (150-450); Red Blood Count 3.79 10^6 /uL (3.70-4.87); Red Cell Distribution Width 13 % (10-15); White Blood Count 16.8 10^3/uL (3.5-10.8)
[2021-07-07 04:45] LABS: Calcium 8.7 mg/dL (8.6-10.3); EGFR African American 72.8 (>60); EGFR Non-African American 60.2 (>60); Magnesium 1.9 mg/dL (1.9-2.7); Phosphorus 1.6 mg/dL (2.5-5.0); Potassium 4.1 mmol/L (3.5-5.0)
[2021-07-07] MEDS ORDERED: Magnesium Sulfate 2 gm BAG 2 GM/50 ML BAG IVPB ONE (07:44)
[2021-07-07] MEDS: Insulin GLARGINE 100 un/ml 10 ml VIAL SUBCUT SCH (08:16)
[2021-07-07] MEDS: Potassium & Sodium Phos 250 mg = 1 PACKET PO SCH ×4 (08:52→20:39)
[2021-07-07 09:35] LABS: Calcium 9.3 mg/dL (8.6-10.3); EGFR African American 86.8 (>60); EGFR Non-African American 71.7 (>60); Potassium 3.7 mmol/L (3.5-5.0)
[2021-07-07] MEDS: Enoxaparin 30 MG/0.3 ML SYR SUBCUT SCH (11:50)
[2021-07-08 05:20] LABS: ABS Eosinophils 0.1 10^3/ul (0-0.6); ABS Lymphocytes 1.4 10^3/ul (1.0-4.8); ABS Monocytes 0.6 10^3/ul (0-0.8); ABS Neutrophils 5.9 10^3/ul (1.5-7.7); Eosinophil % 1.8 %; Hematocrit 36 % (35-47); Hemoglobin 12.1 g/dL (12.0-16.0); Lymphocyte % 16.9 %; Mean Corpuscular HGB Conc 34 g/dL (31-36); Mean Corpuscular Hemoglobin 31 pg (27-31); Mean Corpuscular Volume 93 fL (80-97); Mean Platelet Volume 8.1 fL (7.4-10.4); Platelet Count 210 10^3/uL (150-450); Red Blood Count 3.84 10^6 /uL (3.70-4.87); Red Cell Distribution Width 14 % (10-15)
[2021-07-08 05:46] LABS: Calcium 8.4 mg/dL (8.6-10.3); EGFR African American 119.2 (>60); EGFR Non-African American 98.5 (>60); Phosphorus 2.3 mg/dL (2.5-5.0); Potassium 3.3 mmol/L (3.5-5.0)
[2021-07-08] MEDS: Potassium & Sodium Phos 250 mg = 1 PACKET PO SCH ×4 (08:10→21:26)
[2021-07-08] MEDS: Insulin GLARGINE 100 un/ml 10 ml VIAL SUBCUT SCH (10:01)
[2021-07-08] MEDS: Enoxaparin 30 MG/0.3 ML SYR SUBCUT SCH (11:55)
[2021-07-08] MEDS ORDERED: Benzocaine/Menthol LOZ PO PRN (20:51)
[2021-07-09 06:24] LABS: ABS Eosinophils 0.1 10^3/ul (0-0.6); ABS Monocytes 0.5 10^3/ul (0-0.8); ABS Neutrophils 3.2 10^3/ul (1.5-7.7); Eosinophil % 2.4 %; Hematocrit 39 % (35-47); Hemoglobin 13.5 g/dL (12.0-16.0); Lymphocyte % 20.4 %; Mean Corpuscular HGB Conc 34 g/dL (31-36); Mean Corpuscular Hemoglobin 32 pg (27-31); Mean Corpuscular Volume 94 fL (80-97); Mean Platelet Volume 7.9 fL (7.4-10.4); Platelet Count 200 10^3/uL (150-450); Red Blood Count 4.21 10^6 /uL (3.70-4.87); Red Cell Distribution Width 13 % (10-15); White Blood Count 4.8 10^3/uL (3.5-10.8)
[2021-07-09 06:43] LABS: Calcium 8.9 mg/dL (8.6-10.3); EGFR African American 137.6 (>60); EGFR Non-African American 113.7 (>60); Magnesium 1.9 mg/dL (1.9-2.7); Potassium 3.5 mmol/L (3.5-5.0)
[2021-07-09] MEDS ORDERED: Insulin GLARGINE 100 un/ml 10 ml VIAL SUBCUT SCH (09:00)
[2021-07-09] MEDS: Potassium & Sodium Phos 250 mg = 1 PACKET PO SCH (09:43)
[2021-07-09 10:38] VITALS: BP 142/67
== END 2021-07-09 12:35 | disposition home or self-care (01) | DRG 637 ==
LOC: ED 07:16 → ICU 10:27 → SUATTDRO 10:27 → ICU 11:58 → MED 07-07 18:30
PROVIDERS: ADMIT Internal Medicine; ATTEND Hospitalist

== ENCOUNTER 2021-09-09 07:41 | Inpatient (IN) ==
[2021-09-09] MEDS ORDERED: Lactated Ringers 1000 ml BAG 1,000 ML IV ONE ×2 (08:35→09:50)
[2021-09-09 08:59] LABS: ABS Basophils 0.1 10^3/ul (0-0.2); ABS Lymphocytes 1.1 10^3/ul (1.0-4.8); ABS Monocytes 1.1 10^3/ul (0-0.8); ABS Neutrophils 15.5 10^3/ul (1.5-7.7); Eosinophil % 0.1 %; Hematocrit 41 % (35-47); Hemoglobin 12.7 g/dL (12.0-16.0); Lymphocyte % 6.2 %; Mean Corpuscular HGB Conc 31 g/dL (31-36); Mean Corpuscular Hemoglobin 31 pg (27-31); Mean Corpuscular Volume 98 fL (80-97); Mean Platelet Volume 8.7 fL (7.4-10.4); Platelet Count 310 10^3/uL (150-450); Red Blood Count 4.14 10^6 /uL (3.70-4.87); Red Cell Distribution Width 14 % (10-15); White Blood Count 17.8 10^3/uL (3.5-10.8)
[2021-09-09 09:03] LABS: Venous Bicarbonate HCO3 11.5 mmol/L (24-28)
[2021-09-09 09:47] LABS: Albumin 3.9 g/dL (3.2-5.2); Calcium 9.2 mg/dL (8.6-10.3); Chloride 98 mmol/L (101-111); Magnesium 2.3 mg/dL (1.9-2.7); Sodium 133 mmol/L (135-145)
[2021-09-09 09:53] LABS: ALT 10 U/L (7-52); Albumin/Globulin Ratio 1.1 (1-3); Alkaline Phosphatase 95 U/L (35-149); Blood Urea Nitrogen 27 mg/dL (6-24); C Reactive Protein 25.92 mg/L (<8.01); Globulin 3.5 g/dL (2-4); Total Protein 7.4 g/dL (6.4-8.9)
[2021-09-09] MEDS ORDERED: Ondansetron 4 mg VIAL 2 MG/ML 2 ml VIAL IV ONE (09:58)
[2021-09-09 10:18] LABS: Anion Gap 27 mmol/L (2-11); CO2 Carbon Dioxide 8 mmol/L (22-32); Glucose 794 mg/dL (70-100)
[2021-09-09] MEDS ORDERED: Insulin Infusion 100unit/100mL 100 UNIT/100 ML BAG IV ONE (10:22)
[2021-09-09 11:24] LABS: Potassium 4.8 mmol/L (3.5-5.0)
[2021-09-09] MEDS ORDERED: Dextrose 50% Syringe 50 ml 25 GM/50 ML SYRINGE IV PUSH PRN (11:56)
[2021-09-09] MEDS ORDERED: Insulin Infusion 100unit/100mL 100 UNIT/100 ML BAG IV SCH (12:00)
[2021-09-09] MEDS ORDERED: Lactated Ringers 1000 ml BAG 1,000 ML IV SCH (13:00)
[2021-09-09 13:33] LABS: Troponin I 0.01 ng/mL (<0.03)
[2021-09-09] MEDS ORDERED: Iodixanol (CONTRAST) 320 MG/ML 100 ML SDV IV ONE (14:06)
[2021-09-09 15:15] LABS: Phosphorus 6.6 mg/dL (2.5-5.0)
[2021-09-09 16:47] LABS: Rapid COVID-19 Molecular Undetected (Undetected)
[2021-09-09 17:38] LABS: Blood Urea Nitrogen 29 mg/dL (6-24); Chloride 97 mmol/L (101-111); Sodium 130 mmol/L (135-145)
[2021-09-09 17:57] LABS: Urine Appearance Cloudy; Urine Bilirubin Negative (Negative); Urine Blood 3+ (Negative); Urine Color Yellow; Urine Glucose 3+(>=500 mg/dL) (Negative); Urine Ketones 2+ (Negative); Urine Nitrite Negative (Negative); Urine Protein Negative (Negative); Urine Specific Gravity 1.037 (1.002-1.030); Urine Urobilinogen Negative (Negative)
[2021-09-09 17:58] LABS: CO2 Carbon Dioxide 11 mmol/L (22-32); Glucose 627 mg/dL (70-100)
[2021-09-09 17:59] LABS: Anion Gap 22 mmol/L (2-11)
[2021-09-09] MEDS: Acetaminophen IV 1 GM/100ML 100 ML IV PRN (18:01)
[2021-09-09] MEDS: Lactated Ringers 1000 ml BAG 1,000 ML IV SCH ×2 (18:01→19:37)
[2021-09-09 18:03] LABS: Urine Bacteria 1+ (Absent); Urine Red Blood Cell 2+(6-10/hpf) (Absent); Urine Squamous Epithelial Cell Present (Absent); Urine White Blood Cell Absent (Absent)
[2021-09-09] MEDS: Enoxaparin 40 MG/0.4 ML SYR SUBCUT SCH (20:07)
[2021-09-09 20:17] LABS: Blood Urea Nitrogen 27 mg/dL (6-24); CO2 Carbon Dioxide 15 mmol/L (22-32); Calcium 9.5 mg/dL (8.6-10.3); Chloride 102 mmol/L (101-111); Glucose 392 mg/dL (70-100); Sodium 132 mmol/L (135-145)
[2021-09-09 20:19] LABS: Anion Gap 15 mmol/L (2-11)
[2021-09-09] MEDS ORDERED: D5W 1/2 NS IVFLUID 1000 ML IV SCH (21:00)
[2021-09-10 00:53] LABS: Calcium 9.1 mg/dL (8.6-10.3); Phosphorus 2.2 mg/dL (2.5-5.0); Potassium 3.7 mmol/L (3.5-5.0)
[2021-09-10] MEDS ORDERED: D5W 1/2 NS 1000 ml BAG 1,000 ML IV SCH (02:30)
[2021-09-10 04:42] LABS: ABS Lymphocytes 0.8 10^3/ul (1.0-4.8); ABS Monocytes 1.3 10^3/ul (0-0.8); ABS Neutrophils 13.6 10^3/ul (1.5-7.7); Hematocrit 35 % (35-47); Hemoglobin 11.8 g/dL (12.0-16.0); Mean Corpuscular HGB Conc 33 g/dL (31-36); Mean Corpuscular Hemoglobin 31 pg (27-31); Mean Corpuscular Volume 92 fL (80-97); Mean Platelet Volume 7.5 fL (7.4-10.4); Platelet Count 260 10^3/uL (150-450); Red Blood Count 3.85 10^6 /uL (3.70-4.87); Red Cell Distribution Width 14 % (10-15); White Blood Count 15.7 10^3/uL (3.5-10.8)
[2021-09-10 04:58] LABS: Calcium 8.9 mg/dL (8.6-10.3); Phosphorus 2.5 mg/dL (2.5-5.0); Potassium 4.1 mmol/L (3.5-5.0)
[2021-09-10] MEDS: Acetaminophen IV 1 GM/100ML 100 ML IV PRN (05:25)
[2021-09-10] MEDS: Insulin GLARGINE 100 un/ml 10 ml VIAL SUBCUT SCH (05:55)
[2021-09-10 09:22] LABS: Blood Urea Nitrogen 19 mg/dL (6-24); CO2 Carbon Dioxide 21 mmol/L (22-32); Calcium 8.4 mg/dL (8.6-10.3); Chloride 106 mmol/L (101-111); Glucose 172 mg/dL (70-100); Sodium 134 mmol/L (135-145)
[2021-09-10 10:07] LABS: Anion Gap 7 mmol/L (2-11)
[2021-09-10 12:44] LABS: Calcium 8.3 mg/dL (8.6-10.3); Phosphorus 1.8 mg/dL (2.5-5.0); Potassium 3.9 mmol/L (3.5-5.0)
[2021-09-10 14:08] LABS: Phosphorus 2.1 mg/dL (2.5-5.0)
[2021-09-10] MEDS: Enoxaparin 40 MG/0.4 ML SYR SUBCUT SCH (20:17)
[2021-09-11] MEDS: Insulin GLARGINE 100 un/ml 10 ml VIAL SUBCUT SCH (05:41)
[2021-09-11 10:59] LABS: Calcium 8.7 mg/dL (8.6-10.3); Phosphorus 1.2 mg/dL (2.5-5.0); Potassium 3.4 mmol/L (3.5-5.0)
[2021-09-11] MEDS ORDERED: Potassium Chlor 20 meq TAB.ER PO ONE (11:54)
[2021-09-11] MEDS ORDERED: Potassium Phosphate IV 21 MMOLE in NS 0.9% 250 ml 250 ML IVPB ONE (12:00)
[2021-09-11] MEDS: Enoxaparin 40 MG/0.4 ML SYR SUBCUT SCH (21:54)
[2021-09-12] MEDS: Insulin GLARGINE 100 un/ml 10 ml VIAL SUBCUT SCH (05:18)
[2021-09-12 06:19] LABS: ABS Eosinophils 0.2 10^3/ul (0-0.6); ABS Lymphocytes 1.2 10^3/ul (1.0-4.8); ABS Monocytes 0.5 10^3/ul (0-0.8); ABS Neutrophils 4.1 10^3/ul (1.5-7.7); Eosinophil % 3.3 %; Hematocrit 40 % (35-47); Hemoglobin 13.6 g/dL (12.0-16.0); Lymphocyte % 19.9 %; Mean Corpuscular HGB Conc 34 g/dL (31-36); Mean Corpuscular Hemoglobin 31 pg (27-31); Mean Corpuscular Volume 92 fL (80-97); Mean Platelet Volume 7.6 fL (7.4-10.4); Nucleated Red Blood Cells % 0.1; Platelet Count 191 10^3/uL (150-450); Red Cell Distribution Width 13 % (10-15)
[2021-09-12 06:37] LABS: Albumin 3.6 g/dL (3.2-5.2); Albumin/Globulin Ratio 1.1 (1-3); Calcium 9.2 mg/dL (8.6-10.3); Globulin 3.4 g/dL (2-4); Potassium 3.8 mmol/L (3.5-5.0); Total Bilirubin 0.8 mg/dL (0.2-1.0)
[2021-09-12 15:33] VITALS: BP 136/67
== END 2021-09-12 17:10 | disposition home or self-care (01) | DRG 638 ==
LOC: ED 07:41 → ICU 11:35 → SUATTDRO 11:35 → MED 09-10 14:00
PROVIDERS: ADMIT Internal Medicine Critical Care Medicine; ATTEND Internal Medicine

== ENCOUNTER 2021-10-01 08:29 | Inpatient (IN) ==
[2021-10-01] MEDS ORDERED: Lactated Ringers 1000 ml BAG 1,000 ML IV ONE ×2 (08:44→09:34)
[2021-10-01 09:06] LABS: ABS Basophils 0.1 10^3/ul (0-0.2); ABS Monocytes 0.4 10^3/ul (0-0.8); ABS Neutrophils 8.8 10^3/ul (1.5-7.7); Eosinophil % 0.4 %; Hematocrit 42 % (35-47); Lymphocyte % 9.8 %; Mean Corpuscular HGB Conc 33 g/dL (31-36); Mean Corpuscular Hemoglobin 31 pg (27-31); Mean Corpuscular Volume 94 fL (80-97); Mean Platelet Volume 8.3 fL (7.4-10.4); Platelet Count 271 10^3/uL (150-450); Red Blood Count 4.51 10^6 /uL (3.70-4.87); Red Cell Distribution Width 13 % (10-15); White Blood Count 10.3 10^3/uL (3.5-10.8)
[2021-10-01 09:22] LABS: Venous Bicarbonate HCO3 17.6 mmol/L (24-28)
[2021-10-01 09:23] LABS: ALT 10 U/L (7-52); Albumin/Globulin Ratio 1.1 (1-3); Alkaline Phosphatase 89 U/L (35-149); Blood Urea Nitrogen 22 mg/dL (6-24); CO2 Carbon Dioxide 17 mmol/L (22-32); Calcium 9.6 mg/dL (8.6-10.3); Chloride 94 mmol/L (101-111); Globulin 3.6 g/dL (2-4); Sodium 130 mmol/L (135-145); Total Protein 7.6 g/dL (6.4-8.9)
[2021-10-01 09:32] LABS: Glucose 539 mg/dL (70-100); Glucose Confirmatory 539 mg/dL (70-100)
[2021-10-01 09:56] LABS: Anion Gap 19 mmol/L (2-11)
[2021-10-01 10:13] LABS: Urine Appearance Clear; Urine Bilirubin Negative (Negative); Urine Blood 1+ (Negative); Urine Color Straw; Urine Glucose 3+(>=500 mg/dL) (Negative); Urine Ketones 2+ (Negative); Urine Nitrite Negative (Negative); Urine Protein Negative (Negative); Urine Specific Gravity 1.024 (1.002-1.030); Urine Urobilinogen Negative (Negative)
[2021-10-01 10:20] LABS: Urine Amorphous Crystals Present (Absent); Urine Bacteria Absent (Absent); Urine Red Blood Cell Trace(0-2/hpf) (Absent); Urine Squamous Epithelial Cell Present (Absent); Urine White Blood Cell Trace(0-5/hpf) (Absent)
[2021-10-01 10:22] LABS: Potassium Redraw 4.7 mmol/L (3.5-5.0)
[2021-10-01] MEDS ORDERED: Insulin Infusion 100unit/100mL 100 UNIT/100 ML BAG IV ONE (10:36)
[2021-10-01] MEDS ORDERED: Dextrose 50% Syringe 50 ml 25 GM/50 ML SYRINGE IV PUSH PRN ×2 (11:50→19:26)
[2021-10-01] MEDS ORDERED: Insulin Infusion 100unit/100mL 100 UNIT/100 ML BAG IV SCH ×3 (12:00→16:27)
[2021-10-01] MEDS ORDERED: Potassium Chloride IV 20 MEQ in Lactated Ringers 1000 ml BAG 1,000 ML IVPB SCH (12:00)
[2021-10-01] MEDS ORDERED: Ondansetron 4 mg VIAL 2 MG/ML 2 ml VIAL IV ONE (12:01)
[2021-10-01 12:16] LABS: Creatine Kinase 45 U/L (10-223)
[2021-10-01 12:23] LABS: Rapid COVID-19 Molecular Undetected (Undetected)
[2021-10-01] MEDS: Enoxaparin 40 MG/0.4 ML SYR SUBCUT SCH (12:30)
[2021-10-01 12:45] LABS: TSH Ultra Thyroid Stim Horm 0.54 mcIU/mL (0.34-5.60)
[2021-10-01] MEDS ORDERED: LACTATED RINGERS IV SCH (13:00)
[2021-10-01] MEDS ORDERED: POTASSIUM CHLORIDE IV SCH ×4 (13:00→18:45)
[2021-10-01 13:17] LABS: Glucose Confirmatory 475 mg/dL (70-100)
[2021-10-01 16:12] LABS: Calcium 9.1 mg/dL (8.6-10.3); Potassium 4.4 mmol/L (3.5-5.0)
[2021-10-01] MEDS ORDERED: D10W IV SCH ×3 (16:23→18:45)
[2021-10-01] MEDS ORDERED: Insulin GLARGINE 100 un/ml 10 ml VIAL SUBCUT ONE (16:23)
[2021-10-01] MEDS ORDERED: D10W IVPB SCH (17:00)
[2021-10-01] MEDS ORDERED: POTASSIUM CHLORIDE TPN IVPB SCH (17:00)
[2021-10-01] MEDS ORDERED: D5W 1/2 NS 1000 ml BAG 1,000 ML IV SCH (17:00)
[2021-10-01 19:41] LABS: Calcium 8.4 mg/dL (8.6-10.3); Magnesium 1.8 mg/dL (1.9-2.7); Phosphorus 2.8 mg/dL (2.5-5.0); Potassium 4.5 mmol/L (3.5-5.0)
[2021-10-01] MEDS ORDERED: Magnesium Sulfate IV 3 GM in NS 0.9% 100 ml BAG 100 ML IVPB ONE (20:01)
[2021-10-01] MEDS: Insulin GLARGINE 100 un/ml 10 ml VIAL SUBCUT SCH (20:28)
[2021-10-01] MEDS ORDERED: Insulin GLARGINE 100 un/ml 10 ml VIAL SUBCUT SCH ×2 (21:00)
[2021-10-02 04:29] LABS: ABS Basophils 0.1 10^3/ul (0-0.2); ABS Eosinophils 0.1 10^3/ul (0-0.6); ABS Lymphocytes 1.3 10^3/ul (1.0-4.8); ABS Monocytes 0.7 10^3/ul (0-0.8); ABS Neutrophils 5.8 10^3/ul (1.5-7.7); Eosinophil % 1.4 %; Hematocrit 39 % (35-47); Hemoglobin 13.2 g/dL (12.0-16.0); Lymphocyte % 16.8 %; Mean Corpuscular HGB Conc 34 g/dL (31-36); Mean Corpuscular Hemoglobin 31 pg (27-31); Mean Corpuscular Volume 92 fL (80-97); Mean Platelet Volume 7.7 fL (7.4-10.4); Platelet Count 233 10^3/uL (150-450); Red Blood Count 4.21 10^6 /uL (3.70-4.87); Red Cell Distribution Width 13 % (10-15)
[2021-10-02 04:47] LABS: Calcium 8.5 mg/dL (8.6-10.3); Magnesium 2.5 mg/dL (1.9-2.7); Phosphorus 2.4 mg/dL (2.5-5.0); Potassium 3.8 mmol/L (3.5-5.0)
[2021-10-02] MEDS: Insulin GLARGINE 100 un/ml 10 ml VIAL SUBCUT SCH ×2 (07:30→20:40)
[2021-10-02] MEDS: Cholecalciferol (VIT D3) 1,000 unit TAB PO SCH (07:30)
[2021-10-02] MEDS: CMCS: Anastrozole 1 mg TAB (NF) PO SCH (07:30)
[2021-10-02] MEDS: Enoxaparin 40 MG/0.4 ML SYR SUBCUT SCH (11:22)
[2021-10-03 08:26] LABS: Calcium 9.2 mg/dL (8.6-10.3); Potassium 3.4 mmol/L (3.5-5.0)
[2021-10-03] MEDS: Cholecalciferol (VIT D3) 1,000 unit TAB PO SCH (08:34)
[2021-10-03] MEDS: CMCS: Anastrozole 1 mg TAB (NF) PO SCH (08:42)
[2021-10-03] MEDS: Insulin GLARGINE 100 un/ml 10 ml VIAL SUBCUT SCH (08:42)
[2021-10-03 11:57] VITALS: BP 122/58
[2021-10-03] MEDS: Enoxaparin 40 MG/0.4 ML SYR SUBCUT SCH (12:44)
== END 2021-10-03 15:15 | disposition home or self-care (01) | DRG 638 ==
LOC: ED 08:29 → EDHOLD 11:45 → SUATTDRO 11:45 → ICU 11:54 → MED 10-02 23:04
PROVIDERS: ADMIT Internal Medicine Critical Care Medicine; ATTEND Student in an Organized Health Care Education/Training Program